=== PATIENT | female | born 1940 | race Hispanic/Latino ===

== ENCOUNTER → 2018-07-02 | Day surgery (SDC) | payer MEDICARE ==
--- NOTE | 2018-06-26 16:53 | Diagnostic Imaging Report ---
EXAMINATION: PA and lateral views of the chest. COMPARISON: None CLINICAL HISTORY: Preoperative exam for finger surgery DISCUSSION: Right internal jugular chest port catheter tip projects over the high right atrium. The lungs are well-inflated and without focal consolidation, pleural effusion, or pneumothorax. Lobular densities projecting over the heart on the lateral radiograph likely represent axillary or chest wall soft tissue, as no correlate is identified on the frontal radiograph. Left axillary surgical clips. No acute osseous abnormalities. IMPRESSION: No acute cardiopulmonary abnormalities. Signed by: Dr. Wenceslao Wisdom M.D. on 06/26/2018 4:49 PM
[2018-06-26 17:07] LABS: BASOPHILS # (AUTO) 0.1 (0.0-0.1); BASOPHILS % 1.9 % (0.0-1.0); EOSINOPHILS # (AUTO) 0.1 (0.0-0.4); EOSINOPHILS % 2.4 % (0.0-6.0); HEMOGLOBIN 12.4 g/dL (12.0-16.0); LYMPHOCYTES # (AUTO) 1.1 (1.0-3.2); LYMPHOCYTES % 26.9 % (18.0-39.1); MEAN CORPUSCULAR HEMOGLOBIN 30.7 pg (28-32); MEAN CORPUSCULAR HGB CONC 33.5 g/dL (31-35); MEAN CORPUSCULAR VOLUME 91.6 fL (81-99); MONOCYTES # (AUTO) 0.5 (0.2-0.8); MONOCYTES % 11.1 % (4.4-11.3); NEUTROPHILS # (AUTO) 2.4 (2.1-6.9); NEUTROPHILS % 57.5 % (38.7-80.0); PLATELET COUNT 201 x10e3/uL (140-360); RED BLOOD COUNT 4.04 x10e6/uL (3.6-5.1); RED CELL DISTRIBUTION WIDTH 12.9 % (11.7-14.4)
[2018-06-26 17:20] LABS: ANION GAP 12.1 mmol/L (8-16); BLOOD UREA NITROGEN 11 mg/dL (7-26); BUN/CREATININE RATIO 15 (6-25); CALCIUM 9.9 mg/dL (8.4-10.2); CARBON DIOXIDE 26 mmol/L (22-29); CHLORIDE 103 mmol/L (98-107); CREATININE, SERUM 0.75 mg/dL (0.57-1.11); EST GLOMERULAR FILTRATION RATE > 60 ML/MIN (60-); GLUCOSE 114 mg/dL (74-118); POTASSIUM 4.1 mmol/L (3.5-5.1); SODIUM 137 mmol/L (136-145)
[~2018-07-02] MED LIST: ARIMIDEX1 MG PO; BUPIVACAINE HCL 0.5% INJ 30 ML VIAL INJ ONE; CEFAZOLIN SOD 1 GM/NS 50ML 50 ML IV ONE; DEXAMETHASONE SOD PHOS INJ 4 MG/ML VIAL ONE; FENTANYL CITRATE/PF 100MCG/2 ML INJ ONE; HYDROMORPHONE 2MG/ML 2 MG/ML ML ONE; LIDOCAINE HCL 2% LOCAL INJ 5 ML SDV VIAL INJ ONE; MELOXICAM PO; MUPIROCIN 2% OINT 22 GM TUBE ONE; ONDANSETRON HCL INJ 2MG/ML 2ML 2 MG/ML VIAL ONE; PEPCID PO; PROPOFOL IV EMULSION 10 MG/ML 20 ML VIAL ONE; RED CLOVER PO; SEVOFLURANE INHAL SOLN 250 ML PEN BTL ONE
--- OUTSIDE RECORDS SUMMARY | 2018-07-02 05:38 | XMS REPORT | Clinical Summary ---
Author Author [facility] Address Unknown Phone Unavailable Care Team Providers Care Printing Plate Clerk Name Role Phone Asked, No Pcp PCP Unavailable Allergies Comments Active Allergy Reactions Severity Noted Date Hydrocodone Itching 11/08/2017 Medications No known medications Active Problems Problem Noted Date Carpal tunnel syndrome on left 11/08/2017 Encounters Care Team Description Date Type Specialty Katelin Finley MD Carpal tunnel syndrome on left (Primary Dx); Trigger middle finger of left hand; Trigger ring finger of left hand 11/08/2017 Office Visit Orthopedic Surgery Osman Liu MA Hand pain, left (Primary Dx) 11/07/2017 Orders Only Orthopedic Surgery after 07/01/2017 Social History Date Tobacco Use Types Packs/Day Years Used Never Smoker Smokeless Tobacco: Never Used Alcohol Use Drinks/Week oz/Week Comments No Sex Assigned at Date Recorded Not on file Industry Job Start Date Occupation Not on file Not on file Not on file Travel End Travel History Travel Start No recent travel history available. Last Filed Vital Signs Not on file Plan of Treatment Health Maintenance Due Date Last Done Comments BREAST CANCER SCREENING 1992 COLON CANCER SCREENING 1992 SHINGLES VACCINES (#1) 1992 65+ PNEUMOCOCCAL VACCINE 10/10/2007 (1 of 2 - PCV13) PNEUMOCOCCAL 10/10/2007 POLYSACCHARIDE VACCINE AGE 65 AND OVER INFLUENZA VACCINE 10/31/2017 Procedures Comments Procedure Name Priority Date/Time Associated Diagnosis XR HAND 3+ VW LEFT Routine 11/08/2017 Hand pain, left 9:06 AM CDT [place] INJECT TENDON Routine 11/08/2017 Trigger ring finger of SHEATH/LIGAMENT 8:40 AM CDT left hand [place] INJECT TENDON Routine 11/08/2017 Trigger middle finger of SHEATH/LIGAMENT 8:40 AM CDT left hand after 07/01/2017 Results * XR Hand 3+ Vw Left (11/08/2017 9:06 AM CDT) Narrative Performed At [facility] Xrays: The x-rays were ordered and personally reviewed by me. 3 views of the left hand Reason for exam: Left hand pain Impression: Left hand with evidence of a healed distal radius fracture Performing Organization Address City/State/Zipcode Phone Number [facility] [address] [place] [address] * Injection tendon or ligament (11/08/2017 8:40 AM CDT) Narrative Performed At Katelin Finley MD 11/08/2017 12:45 PM Injection tendon or ligament Date/Time: 11/08/2017 12:43 PM Performed by: KATELIN FINLEY Authorized by: KATELIN FINLEY Consent: Consent obtained:Verbal Consent given by:Patient Procedure details: Type of injection:Tendon sheath Location:Hand Hand location:Left ring flexor Left side: Left ring finger medications administered: 6 mg betamethasone acetate & sodium phosphate 6 mg/mL; 0.5 mL lidocaine 10 mg/mL (1 %) Post-procedure details: Patient tolerance of procedure:Tolerated well, no immediate complications * Injection tendon or ligament (11/08/2017 8:40 AM CDT) Narrative Performed At Katelin Finley MD 11/08/2017 12:45 PM Injection tendon or ligament Date/Time: 11/08/2017 12:43 PM Performed by: KATELIN FINLEY Authorized by: KATELIN FINLEY Consent: Consent obtained:Verbal Consent given by:Patient Procedure details: Type of injection:Tendon sheath Location:Hand Hand location:Left long flexor Left side: Left thumb medications administered: 6 mg betamethasone acetate & sodium phosphate 6 mg/mL; 0.5 mL lidocaine 10 mg/mL (1 %) Post-procedure details: Patient tolerance of procedure:Tolerated well, no immediate complications after 07/01/2017 Insurance Payer Benefit Subscriber ID Type Phone Address Plan / Group HUMANA MEDICARE HUMANA xxxxxxxxx PPO MEDICARE PPO/PFFS/E [facility] Advance Directives Patient has advance care planning documents on file. For more information, jonathan e contact: Scot [address] [place] [address]
--- OUTSIDE RECORDS SUMMARY | 2018-07-02 05:38 | XMS REPORT ---
Author [facility] Address Unknown Phone Unavailable Care Team Providers Care Aspnet Developer Name Role Phone ESTEFANIA DAVILA Unavailable Unavailable Problems This patient has no known problems. Allergies, Adverse Reactions, Alerts This patient has no known allergies or adverse reactions. Medications This patient has no known medications. Results Test Description Test Time Test Comments Text Results Atomic Results Result Comments CHEST 2 VIEWS 2018-06-26 16:45:00 [place] [address] Patient Name: PATEL HARRINGTON MR #: [id number] : 1940 Age/Sex: 77/F Req #: [id number] Adm Physician: Ordered by: ESTEFANIA DAVILA MD Report #: [id number] Location: OR Room/Bed: Procedure: [id number] DX/CHEST 2 VIEWS Exam Date: 06/26/18 Exam Time: 1550 REPORT STATUS: Signed EXAMINATION: PA and lateral views of the chest. C OMPARISON: None CLINICAL HISTORY: Preoperative exam for finger surgery DISCUSSION: Right internal jugular chest port catheter tip projects over the high right atrium. The lungs are well-inflated and without focal consolidation, pleural effusion, or pneumothorax. Lobular densities projecting over the heart on the lateral radiograph likely represent axillary or chest wall soft tissue, as no correlate is identified on the frontal radiograph. Left axillary surgical clips. No acute osseous abnormalities. IMPRESSION: No acute cardiopulmonary abnormalities. Signed by: Dr. Lisseth Figueredo M.D. on 06/26/2018 4:49 PM Dictated By: LISSETH FIGUEREDO MD 48 Transcribed By: ANNI on 06/26/181648 COPY TO: ESTEFANIA DAVILA MD
[2018-07-02 08:49] VITALS: BP 142/72
--- NOTE | 2018-07-02 16:27 | Operative Report ---
DATE OF PROCEDURE: 07/02/2018 SURGEON: Thang Sandoval MD PREOPERATIVE DIAGNOSIS: Stenosing tenosynovitis of left long finger. POSTOPERATIVE DIAGNOSIS: Stenosing tenosynovitis of left long finger. OPERATION PERFORMED: Tenovaginotomy of left long finger. ANESTHESIA: General. HISTORY: The patient is a 77-year-old left hand-dominant female, who presents with stenosing tenosynovitis of the left long finger that is recalcitrant to conservative treatment. The risks, benefits, and alternatives of treatment were discussed with the patient and they are prepared to undergo the procedure as outlined. DESCRIPTION OF PROCEDURE: The patient was brought to the operating theater. After the induction of adequate general/regional anesthesia, the patient was prepped and draped in a supine position. A time out was performed by the entire operating room team. An oblique incision was marked out over the A1 elena of the left long finger. The upper extremity was exsanguinated, and a tourniquet was inflated to a pressure of 250 mmHg. The incision was made through the skin and subcutaneous tissues. All venous tributaries were controlled with bipolar cautery. The incision was deepened through the palmar tissues. The neurovascular bundles on the radial and ulnar sides of the flexor tendon sheath were identified and retracted away from the flexor tendon sheath and preserved. The A1 elena of the affected finger was identified and incised longitudinally, taking care to protect and preserve the flexor tendons within the sheath. After the complete length of the elena had been transected, the tendons were placed in a range of motion. There was noted to be good motion without any locking. The wound was then copiously irrigated with bacteriostatic saline and closed with 5-0 nylon in an interrupted horizontal mattress fashion. A Marcaine field block was performed at the operative site. The tourniquet was deflated. All the fingers pinked up nicely. A sterile bulky conforming bandage was applied to the hand, and the patient was returned to the recovery room in satisfactory condition and was discharged with a postoperative instruction sheet as well as a followup appointment. Thang Sandoval MD ER/MODL /[id number]
== END | disposition home or self-care (01) ==
LOC: OR 05:36
PROVIDERS: ATTEND Plastic Surgery
DX: M65.332 Trigger finger, left middle finger (principal); C50.912 Malignant neoplasm of unspecified site of left female breast; R42 Dizziness and giddiness; F41.9 Anxiety disorder, unspecified; Z88.6 Allergy status to analgesic agent; Z79.890 Hormone replacement therapy; Z01.810 Encounter for preprocedural cardiovascular examination; Z01.812 Encounter for preprocedural laboratory examination; Z01.818 Encounter for other preprocedural examination; Z90.12 Acquired absence of left breast and nipple
CPT/HCPCS: 26055; 36415; 71046; 80048; 85025; 93005; J0690; J1100; J1170; J2001; J2405; J2704

== ENCOUNTER 2018-10-19 16:29 | Emergency (ER) | payer MEDICARE, OTHER ==
[~2018-10-19] VITALS: Ht 152.4 cm; Wt 95.3 kg
[~2018-10-19 16:29] MED LIST changes: -BUPIVACAINE HCL 0.5% INJ 30 ML VIAL INJ ONE; -CEFAZOLIN SOD 1 GM/NS 50ML 50 ML IV ONE; -DEXAMETHASONE SOD PHOS INJ 4 MG/ML VIAL ONE; -FENTANYL CITRATE/PF 100MCG/2 ML INJ ONE; -HYDROMORPHONE 2MG/ML 2 MG/ML ML ONE; -LIDOCAINE HCL 2% LOCAL INJ 5 ML SDV VIAL INJ ONE; -MUPIROCIN 2% OINT 22 GM TUBE ONE; -ONDANSETRON HCL INJ 2MG/ML 2ML 2 MG/ML VIAL ONE; -PROPOFOL IV EMULSION 10 MG/ML 20 ML VIAL ONE; -SEVOFLURANE INHAL SOLN 250 ML PEN BTL ONE
--- OUTSIDE RECORDS SUMMARY | 2018-10-19 16:33 | XMS REPORT | Clinical Summary ---
Author Author [facility] Address Unknown Phone Unavailable Care Team Providers Care Enterostomal Therapy Nurse Name Role Phone Asked, No Pcp PCP [...] Dx) 11/07/2017 Orders Only Orthopedic Surgery after 10/18/2017 Social History Date Tobacco Use Types Packs/Day [...] Health Maintenance Due Date Last Done Comments COLONOSCOPY SCREENING 1992 SHINGLES VACCINES (#1) 1992 65+ PNEUMOCOCCAL VACCINE 10/10/2007 (1 of 2 - PCV13) INFLUENZA VACCINE 10/31/2018 Procedures Comments Procedure Name Priority Date/Time Associated Diagnosis XR HAND 3+ VW LEFT Routine 11/08/2017 Hand pain, left 9:06 AM CDT [place] INJECT TENDON Routine 11/08/2017 Trigger ring finger of SHEATH/LIGAMENT 8:40 AM CDT left hand [place] INJECT TENDON Routine 11/08/2017 Trigger middle finger of SHEATH/LIGAMENT 8:40 AM CDT left hand after 10/18/2017 Results * XR Hand 3+ Vw Left (11/08/2017 9:06 AM CDT) Specimen Narrative Performed At [facility] Xrays: The x-rays were ordered and personally reviewed by me. 3 views of the left hand Reason for exam: Left hand pain Impression: Left hand with evidence of a healed distal radius fracture Performing Organization Address City/State/Zipcode Phone Number [facility] [address] [place] [address] * Injection tendon or ligament (11/08/2017 8:40 [...] of procedure:Tolerated well, no immediate complications after 10/18/2017 Insurance Type Payer Benefit Subscriber ID Effective Phone Address Plan / Dates Group PPO HUMANA MEDICARE HUMANA xxxxxxxxx 2017-P MEDICARE resent PPO/PFFS/E [facility] Advance Directives Patient has advance care planning documents on file. For more information, jonathan atkinson contact: Scot Carvajal [address] [place] [address]
[2018-10-19] MEDS: ACETAMINOPHEN 325 MG TAB PO STA (16:55)
[2018-10-19] MEDS ORDERED: ACETAMINOPHEN 325 MG TAB ONE (16:56)
--- NOTE | 2018-10-19 17:32 | Diagnostic Imaging Report ---
EXAMINATION: CXR 2 VIEW - HOPD INDICATION: Bodyaches. Nausea. Fever x3 days. COMPARISON: Chest x-ray 06/26/2018 FINDINGS: TUBES and LINES: Tunneled right dialysis catheter with tip in the low right atrium. LUNGS: Lungs are well inflated. Lungs are clear. There is mild prominence of the central pulmonary vasculature, consistent with pulmonary venous congestion. PLEURA: No pleural effusion or pneumothorax. HEART AND MEDIASTINUM: Cardiac size is mildly enlarged. BONES AND SOFT TISSUES: There are degenerative changes in the thoracic spine. Soft tissues are unremarkable. Left axillary surgical clips. UPPER ABDOMEN: No free air under the diaphragm. IMPRESSION: Mild cardiomegaly. Mild nonspecific central pulmonary venous congestion. Signed by: Dr. Lino Del Rio M.D. on 10/19/2018 5:28 PM
[2018-10-19 19:02] VITALS: BP 133/63
== END 2018-10-19 18:50 | disposition home or self-care (01) ==
LOC: FSED 16:29
DX: N30.91 Cystitis, unspecified with hematuria (principal); Z85.3 Personal history of malignant neoplasm of breast; Z88.5 Allergy status to narcotic agent
CPT/HCPCS: 71046; 80048; 80076; 81003; 82553; 83518; 83880; 84484; 85025; 87040; 87086; 87400; 93005; 99284

== ENCOUNTER → 2020-08-12 | Day surgery (SDC) | payer MEDICARE ==
[2020-08-09 15:16] LABS: BASOPHILS # (AUTO) 0.1 (0.0-0.1); BASOPHILS % 2.3 % (0.0-1.0); EOSINOPHILS # (AUTO) 0.2 (0.0-0.4); EOSINOPHILS % 3.8 % (0.0-6.0); HEMATOCRIT 34.5 % (34.2-44.1); HEMOGLOBIN 11.6 g/dL (12.0-16.0); LYMPHOCYTES # (AUTO) 1.5 (1.0-3.2); LYMPHOCYTES % 33.5 % (18.0-39.1); MEAN CORPUSCULAR HEMOGLOBIN 30.5 pg (28-32); MEAN CORPUSCULAR HGB CONC 33.6 g/dL (31-35); MEAN CORPUSCULAR VOLUME 90.8 fL (81-99); MONOCYTES # (AUTO) 0.5 (0.2-0.8); MONOCYTES % 10.9 % (4.4-11.3); NEUTROPHILS # (AUTO) 2.2 (2.1-6.9); NEUTROPHILS % 49.5 % (38.7-80.0); PLATELET COUNT 186 x10e3/uL (140-360); RED CELL DISTRIBUTION WIDTH 13.2 % (11.7-14.4)
[~2020-08-12] MED LIST changes: +FENTANYL CITRATE/PF 100MCG/2 ML INJ ONE; +IOPAMIDOL 200 MG/ML 20 ML VIAL IT ONE; +LIDOCAINE HCL 1% 30ML-PF VIAL ONE; +LIDOCAINE HCL 2% LOCAL INJ 5 ML SDV VIAL INJ ONE; +MIDAZOLAM HCL 2 MG/2 ML VIAL ONE; +POVIDONE IODINE 0.05% 0.05 % ML PO ONE; +PROPOFOL IV EMULSION 10 MG/ML 20 ML VIAL ONE; +TRIAMCINOLONE ACET 40 MG/ML VIAL ONE; +VITAMIN B122500 MCG PO
[2020-08-12 07:35] VITALS: BP 173/84
== END | disposition home or self-care (01) ==
LOC: OR 05:53
PROVIDERS: ATTEND Physical Medicine & Rehabilitation Pain Medicine
DX: M47.896 Other spondylosis, lumbar region (principal); G89.29 Other chronic pain; M25.562 Pain in left knee; M25.561 Pain in right knee; G62.9 Polyneuropathy, unspecified; Z01.810 Encounter for preprocedural cardiovascular examination; Z01.812 Encounter for preprocedural laboratory examination; Z20.822 Contact with and (suspected) exposure to COVID-19; Z85.3 Personal history of malignant neoplasm of breast; Z96.653 Presence of artificial knee joint, bilateral
CPT/HCPCS: 36415; 64493; 64494; 64495; 85025; 93005; J2001 ×2; J2250; J2704; J3010; J3301; Q9967; U0002; 77003

== ENCOUNTER 2021-08-13 09:02 | Emergency (ER) | payer MEDICARE ==
[~2021-08-13] VITALS: Ht 160 cm; Wt 99.0 kg
[~2021-08-13 09:02] MED LIST changes: -FENTANYL CITRATE/PF 100MCG/2 ML INJ ONE; -IOPAMIDOL 200 MG/ML 20 ML VIAL IT ONE; -LIDOCAINE HCL 1% 30ML-PF VIAL ONE; -LIDOCAINE HCL 2% LOCAL INJ 5 ML SDV VIAL INJ ONE; -MIDAZOLAM HCL 2 MG/2 ML VIAL ONE; -POVIDONE IODINE 0.05% 0.05 % ML PO ONE; -PROPOFOL IV EMULSION 10 MG/ML 20 ML VIAL ONE; -TRIAMCINOLONE ACET 40 MG/ML VIAL ONE
[2021-08-13] MEDS ORDERED: CYCLOBENZAPRINE5 MG PO (09:40)
[2021-08-13] MEDS ORDERED: IBUPROFEN600 MG PO (09:40)
[2021-08-13] MEDS ORDERED: CYCLOBENZAPRINE HCL 10 MG TAB PO ONE (09:45)
[2021-08-13] MEDS ORDERED: KETOROLAC TROMETHAMINE 60 MG/2 ML VIAL IM ONE (09:45)
[2021-08-13] MEDS ORDERED: KETOROLAC TROMETHAMINE 30 MG/ML VIAL ONE (09:50)
== END 2021-08-13 09:48 | disposition home or self-care (01) ==
LOC: FSED 09:16
DX: M54.2 Cervicalgia (principal); Z85.3 Personal history of malignant neoplasm of breast; Z96.653 Presence of artificial knee joint, bilateral
CPT/HCPCS: 96372; 99283; J1885

== ENCOUNTER 2021-08-13 18:17 | Emergency (ER) | payer MEDICARE ==
[~2021-08-13] VITALS: Ht 157.5 cm; Wt 74.8 kg
[~2021-08-13 18:17] MED LIST changes: +CYCLOBENZAPRINE5 MG PO; +IBUPROFEN600 MG PO
[2021-08-13 19:20] LABS: BASOPHILS # (AUTO) 0.1 (0.0-0.1); BASOPHILS % 2.8 % (0.0-1.0); EOSINOPHILS # (AUTO) 0.2 (0.0-0.4); EOSINOPHILS % 5.1 % (0.0-6.0); HEMATOCRIT 35.7 % (34.2-44.1); HEMOGLOBIN 12.1 g/dL (12.0-16.0); LYMPHOCYTES # (AUTO) 1.6 (1.0-3.2); LYMPHOCYTES % 40.9 % (18.0-39.1); MEAN CORPUSCULAR HEMOGLOBIN 31.4 pg (28-32); MEAN CORPUSCULAR HGB CONC 33.9 g/dL (31-35); MEAN CORPUSCULAR VOLUME 92.7 fL (81-99); MONOCYTES # (AUTO) 0.5 (0.2-0.8); MONOCYTES % 11.6 % (4.4-11.3); NEUTROPHILS # (AUTO) 1.6 (2.1-6.9); NEUTROPHILS % 39.3 % (38.7-80.0); PLATELET COUNT 229 x10e3/uL (140-360); RED BLOOD COUNT 3.85 x10e6/uL (3.6-5.1); RED CELL DISTRIBUTION WIDTH 12.4 % (11.7-14.4)
[2021-08-13 19:45] LABS: ALBUMIN 3.5 g/dL (3.5-5.0); CALCIUM 9.5 mg/dL (8.4-10.2); CREATININE, SERUM 0.95 mg/dL (0.57-1.11)
[2021-08-13 20:36] VITALS: BP 148/68
== END 2021-08-13 20:30 | disposition home or self-care (01) ==
LOC: ER 18:27
DX: R68.84 Jaw pain (principal); M54.2 Cervicalgia; Z85.3 Personal history of malignant neoplasm of breast; Z96.653 Presence of artificial knee joint, bilateral
CPT/HCPCS: 36415; 71045; 80053; 83880; 84484; 85025; 93005; 99283

== ENCOUNTER → 2021-11-04 | Day surgery (SDC) | payer MEDICARE ==
[2021-11-02 15:15] LABS: BASOPHILS # (AUTO) 0.1 (0.0-0.1); BASOPHILS % 2.2 % (0.0-1.0); EOSINOPHILS # (AUTO) 0.2 (0.0-0.4); EOSINOPHILS % 3.3 % (0.0-6.0); HEMATOCRIT 35.1 % (34.2-44.1); HEMOGLOBIN 11.9 g/dL (12.0-16.0); LYMPHOCYTES # (AUTO) 1.4 (1.0-3.2); LYMPHOCYTES % 30.7 % (18.0-39.1); MEAN CORPUSCULAR HEMOGLOBIN 31.2 pg (28-32); MEAN CORPUSCULAR HGB CONC 33.9 g/dL (31-35); MEAN CORPUSCULAR VOLUME 92.1 fL (81-99); MONOCYTES # (AUTO) 0.5 (0.2-0.8); MONOCYTES % 10.8 % (4.4-11.3); NEUTROPHILS # (AUTO) 2.4 (2.1-6.9); NEUTROPHILS % 52.8 % (38.7-80.0); PLATELET COUNT 209 x10e3/uL (140-360); RED BLOOD COUNT 3.81 x10e6/uL (3.6-5.1); RED CELL DISTRIBUTION WIDTH 13.2 % (11.7-14.4)
[2021-11-02 15:37] LABS: ANION GAP 13.3 mmol/L (8-16); CREATININE, SERUM 0.87 mg/dL (0.57-1.11); POTASSIUM 4.3 mmol/L (3.5-5.1)
[2021-11-02 15:38] LABS: ALBUMIN 3.8 g/dL (3.5-5.0); ALBUMIN/GLOBULIN RATIO 1.1 (0.8-2.0)
[~2021-11-04] MED LIST changes: +BUPIVACAINE 0.25% 30ML SDV ONE; +FENTANYL CITRATE/PF 100MCG/2 ML INJ ONE; +LIDOCAINE HCL 1% LOCAL INJ 20 ML VIAL ONE; +LIDOCAINE HCL 2% LOCAL INJ 5 ML SDV VIAL INJ ONE; +MIDAZOLAM HCL 2 MG/2 ML VIAL ONE; +POVIDONE IODINE 0.05% 0.05 % ML PO ONE; +PROPOFOL IV EMULSION 10 MG/ML 20 ML VIAL ONE
[2021-11-04 12:05] VITALS: BP 145/79
== END | disposition home or self-care (01) ==
LOC: OR 09:38
PROVIDERS: ATTEND Surgery
DX: T82.598A Other mechanical complication of other cardiac and vascular devices and implants, initial encounter (principal); C50.919 Malignant neoplasm of unspecified site of unspecified female breast; K21.9 Gastro-esophageal reflux disease without esophagitis; Y83.8 Other surgical procedures as the cause of abnormal reaction of the patient, or of later complication, without mention of misadventure at the time of the procedure; Z01.810 Encounter for preprocedural cardiovascular examination; Z01.812 Encounter for preprocedural laboratory examination; Z20.822 Contact with and (suspected) exposure to COVID-19; Z92.21 Personal history of antineoplastic chemotherapy
CPT/HCPCS: 0223U; 36415; 36590; 80053; 85025; 93005; J2001; J2250; J2704; J3010

== ENCOUNTER 2022-01-14 15:31 | Emergency (ER) | payer MEDICARE ==
[~2022-01-14] VITALS: Ht 157.5 cm; Wt 74.8 kg
[~2022-01-14 15:31] MED LIST changes: -BUPIVACAINE 0.25% 30ML SDV ONE; -FENTANYL CITRATE/PF 100MCG/2 ML INJ ONE; -LIDOCAINE HCL 1% LOCAL INJ 20 ML VIAL ONE; -LIDOCAINE HCL 2% LOCAL INJ 5 ML SDV VIAL INJ ONE; -MIDAZOLAM HCL 2 MG/2 ML VIAL ONE; -POVIDONE IODINE 0.05% 0.05 % ML PO ONE; -PROPOFOL IV EMULSION 10 MG/ML 20 ML VIAL ONE
[2022-01-14] MEDS ORDERED: ONDANSETRON HCL INJ 2MG/ML 2ML 2 MG/ML VIAL IV STA (16:29)
[2022-01-14] MEDS ORDERED: TRAMADOL HCL 50 MG TAB PO ONE (16:30)
[2022-01-14] MEDS ORDERED: ACETAMINOPHEN 325 MG TAB PO ONE (16:30)
[2022-01-14] MEDS ORDERED: SODIUM CHLORIDE FLUSH 10 ML SYR IV PRN (16:30)
[2022-01-14 16:34] LABS: BASOPHILS # (AUTO) 0.1 (0.0-0.1); EOSINOPHILS # (AUTO) 0.2 (0.0-0.4); HEMATOCRIT 36.1 % (34.2-44.1); HEMOGLOBIN 11.9 g/dL (12.0-16.0); LYMPHOCYTES # (AUTO) 1.2 (1.0-3.2); LYMPHOCYTES % 13.2 % (18.0-39.1); MEAN CORPUSCULAR HEMOGLOBIN 31.2 pg (28-32); MEAN CORPUSCULAR VOLUME 94.5 fL (81-99); MONOCYTES # (AUTO) 0.7 (0.2-0.8); MONOCYTES % 7.6 % (4.4-11.3); NEUTROPHILS # (AUTO) 6.7 (2.1-6.9); NEUTROPHILS % 75.6 % (38.7-80.0); PLATELET COUNT 195 x10e3/uL (140-360); RED BLOOD COUNT 3.82 x10e6/uL (3.6-5.1); RED CELL DISTRIBUTION WIDTH 12.8 % (11.7-14.4)
[2022-01-14] MEDS ORDERED: ONDANSETRON HCL INJ 2MG/ML 2ML 2 MG/ML VIAL IV NR (16:45)
[2022-01-14 16:52] LABS: ALBUMIN 3.9 g/dL (3.5-5.0); ALBUMIN/GLOBULIN RATIO 1.3 (0.8-2.0); ANION GAP 19.1 mmol/L (8-16); CALCIUM 9.5 mg/dL (8.4-10.2); CREATININE, SERUM 0.9 mg/dL (0.57-1.11); POTASSIUM 4.1 mmol/L (3.5-5.1)
[2022-01-14 17:38] LABS: CLARITY,URINE CLEAR (CLEAR); COLOR,URINE YELLOW (YELLOW); KETONES,URINE NEGATIVE (NEGATIVE); LEUKOCYTE ESTERASE ,URINE NEGATIVE (NEGATIVE); NITRITE,URINE NEGATIVE (NEGATIVE); PROTEIN,URINE DIPSTICK TRACE (NEGATIVE); URINE UROBILINOGEN 1 mg/dL (0.2 - 1)
[2022-01-14 17:44] LABS: BACTERIA,URINE RARE /HPF; WBC,URINE (MAN) 0-5 /HPF (0-5)
[2022-01-14] MEDS ORDERED: KETOROLAC TROMETHAMINE 30 MG/ML VIAL IV STA (19:01)
[2022-01-14] MEDS ORDERED: CYCLOBENZAPRINE HCL 10 MG TAB PO ONE (19:15)
[2022-01-14] MEDS ORDERED: ULTRAM 50MG50 MG PO (20:34)
[2022-01-14 20:45] VITALS: BP 148/68
== END 2022-01-14 20:47 | disposition home or self-care (01) ==
LOC: ER 15:37
DX: M54.50 Low back pain, unspecified (principal); R11.2 Nausea with vomiting, unspecified; R73.9 Hyperglycemia, unspecified; G89.29 Other chronic pain; Z85.3 Personal history of malignant neoplasm of breast; Z96.653 Presence of artificial knee joint, bilateral
CPT/HCPCS: 36415; 74176; 80053; 81001; 85025; 99284; J1885; J2405

== ENCOUNTER 2022-01-22 09:08 | Inpatient (IN) | payer MEDICARE ==
[~2022-01-22] VITALS: Ht 157.5 cm; Wt 98.0 kg
[~2022-01-22 09:08] MED LIST changes: +ULTRAM 50MG50 MG PO
[2022-01-22] MEDS ORDERED: ONDANSETRON HCL INJ 2MG/ML 2ML 2 MG/ML VIAL IV STA (09:31)
[2022-01-22] MEDS ORDERED: SODIUM CHLORIDE 0.9% 500ML 500 ML IV ONE (09:45)
[2022-01-22 09:50] LABS: BASOPHILS # (AUTO) 0.1 (0.0-0.1); BASOPHILS % 1.4 % (0.0-1.0); EOSINOPHILS # (AUTO) 0.2 (0.0-0.4); EOSINOPHILS % 2.6 % (0.0-6.0); HEMATOCRIT 37.4 % (34.2-44.1); HEMOGLOBIN 13.2 g/dL (12.0-16.0); LYMPHOCYTES # (AUTO) 1.3 (1.0-3.2); LYMPHOCYTES % 21.8 % (18.0-39.1); MEAN CORPUSCULAR HEMOGLOBIN 30.8 pg (28-32); MEAN CORPUSCULAR HGB CONC 35.3 g/dL (31-35); MEAN CORPUSCULAR VOLUME 87.4 fL (81-99); MONOCYTES # (AUTO) 0.7 (0.2-0.8); MONOCYTES % 11.6 % (4.4-11.3); NEUTROPHILS # (AUTO) 3.7 (2.1-6.9); NEUTROPHILS % 62.1 % (38.7-80.0); PLATELET COUNT 358 x10e3/uL (140-360); RED BLOOD COUNT 4.28 x10e6/uL (3.6-5.1); RED CELL DISTRIBUTION WIDTH 12.4 % (11.7-14.4)
[2022-01-22 10:07] LABS: INR 1.07; PARTIAL THROMBOPLASTIN TIME 28.6 seconds (23.8-35.5); PROTHROMBIN TIME 14.9 seconds (11.9-14.5)
[2022-01-22 10:08] LABS: CLARITY,URINE SL CLOUDY (CLEAR); COLOR,URINE STRAW (YELLOW); KETONES,URINE NEGATIVE (NEGATIVE); LEUKOCYTE ESTERASE ,URINE NEGATIVE (NEGATIVE); NITRITE,URINE NEGATIVE (NEGATIVE); PROTEIN,URINE DIPSTICK NEGATIVE (NEGATIVE); URINE UROBILINOGEN 2 mg/dL (0.2 - 1)
[2022-01-22 10:10] LABS: ALANINE AMINOTRANSFERASE 41 IU/L (0-55); ALBUMIN 3.6 g/dL (3.5-5.0); ALBUMIN/GLOBULIN RATIO 0.9 (0.8-2.0); ALKALINE PHOSPHATASE 129 IU/L (40-150); ANION GAP 20.9 mmol/L (8-16); BLOOD UREA NITROGEN 10 mg/dL (7-26); BUN/CREATININE RATIO 13 (6-25); CALCIUM 9.9 mg/dL (8.4-10.2); CARBON DIOXIDE 23 mmol/L (22-29); CHLORIDE 99 mmol/L (98-107); CREATINE KINASE 35 IU/L (29-168); CREATININE, SERUM 0.77 mg/dL (0.57-1.11); GLUCOSE 203 mg/dL (74-118); LIPASE 48 U/L (8-78); MAGNESIUM 1.9 MG/DL (1.3-2.1); POTASSIUM 3.9 mmol/L (3.5-5.1); SODIUM 139 mmol/L (136-145)
[2022-01-22 10:24] LABS: BACTERIA,URINE FEW /HPF; EPITHELIAL CELLS,URINE FEW /LPF
[2022-01-22 10:25] LABS: RENAL EPITHELIAL CELLS,URINE RARE
[2022-01-22 10:30] LABS: THYROID STIMULATING HORMONE 1.474 uIU/mL (0.350-4.940)
[2022-01-22] MEDS ORDERED: IOPAMIDOL 370 MG/ML 100 ML INFUS..BTL INJ ONE (10:47)
[2022-01-22] MEDS ORDERED: ONDANSETRON HCL INJ 2MG/ML 2ML 2 MG/ML VIAL IV PRN (13:15)
[2022-01-22] MEDS: SODIUM CHLORIDE 0.9% 1000ML 1,000 ML IV SCH (13:15)
[2022-01-22] MEDS ORDERED: ACETAMINOPHEN 325 MG TAB PO ONE (14:30)
[2022-01-22] MEDS ORDERED: MINERAL OIL 132 ML BTL PR PRN (14:30)
[2022-01-22 15:30] VITALS: BP 150/76
[2022-01-22] MEDS ORDERED: LYRICA75 MG PO (16:09)
[2022-01-22] MEDS ORDERED: NEURONTIN300 MG PO (16:09)
[2022-01-22 16:42] VITALS: BP 150/76
[2022-01-22] MEDS: LACTULOSE SYRUP 20 GM/30 ML UDC PO SCH (17:22)
[2022-01-22 20:00] VITALS: BP 156/72
[2022-01-22 20:30] VITALS: BP 150/76
[2022-01-23] VITALS (10 sets, daily range): BP systolic 119–181; BP diastolic 62–95
[2022-01-23] MEDS: LACTULOSE SYRUP 20 GM/30 ML UDC PO SCH ×4 (00:33→18:11)
[2022-01-23] MEDS: SODIUM CHLORIDE 0.9% 1000ML 1,000 ML IV SCH ×3 (00:37→18:10)
[2022-01-23] MEDS ORDERED: HYDRALAZINE HCL 20 MG/ML VIAL IV PRN (02:30)
[2022-01-23 05:01] LABS: BASOPHILS # (AUTO) 0.1 (0.0-0.1); BASOPHILS % 1.3 % (0.0-1.0); EOSINOPHILS # (AUTO) 0.2 (0.0-0.4); EOSINOPHILS % 2.5 % (0.0-6.0); HEMOGLOBIN 14.1 g/dL (12.0-16.0); LYMPHOCYTES # (AUTO) 1.2 (1.0-3.2); LYMPHOCYTES % 16.3 % (18.0-39.1); MEAN CORPUSCULAR HEMOGLOBIN 30.7 pg (28-32); MEAN CORPUSCULAR HGB CONC 32.8 g/dL (31-35); MONOCYTES # (AUTO) 0.7 (0.2-0.8); MONOCYTES % 9.2 % (4.4-11.3); NEUTROPHILS # (AUTO) 5.2 (2.1-6.9); NEUTROPHILS % 69.4 % (38.7-80.0); PLATELET COUNT 297 x10e3/uL (140-360); RED CELL DISTRIBUTION WIDTH 12.3 % (11.7-14.4)
[2022-01-23 05:13] LABS: MEAN CORPUSCULAR VOLUME 93.5 fL (81-99)
[2022-01-23] MEDS ORDERED: ACETAMINOPHEN 325 MG TAB PO PRN (05:45)
[2022-01-23 05:49] LABS: ALBUMIN 3.5 g/dL (3.5-5.0); ANION GAP 20.8 mmol/L (8-16); CALCIUM 9.7 mg/dL (8.4-10.2); CREATININE, SERUM 0.79 mg/dL (0.57-1.11); POTASSIUM 3.8 mmol/L (3.5-5.1)
[2022-01-23] MEDS: LIDOCAINE 4% PATCH TP SCH (09:23)
[2022-01-23] MEDS ORDERED: TRAMADOL HCL 50 MG TAB PO PRN (16:30)
[2022-01-23] MEDS ORDERED: IBUPROFEN 600 MG TAB PO PRN (16:30)
[2022-01-23] MEDS: HYDROMORPHONE 1MG/1ML INJ IV PRN (17:11)
[2022-01-23] MEDS: GABAPENTIN 300 MG CAP PO SCH ×2 (18:11→21:25)
[2022-01-23] MEDS ORDERED: NON-FORMULARY MEDICATION (Cyclobenzaprine Hcl (Flexeril) 10 MG) PO SCH (21:00)
[2022-01-23] MEDS: CYCLOBENZAPRINE HCL 10 MG TAB PO SCH (21:24)
[2022-01-23] MEDS: PREGABALIN 75 MG CAP PO SCH (21:25)
[2022-01-24] VITALS (8 sets, daily range): BP systolic 128–166; BP diastolic 68–86
[2022-01-24] MEDS: HYDROMORPHONE 1MG/1ML INJ IV PRN ×2 (00:32→13:54)
[2022-01-24] MEDS: LACTULOSE SYRUP 20 GM/30 ML UDC PO SCH ×4 (00:33→18:00)
[2022-01-24] MEDS: SODIUM CHLORIDE 0.9% 1000ML 1,000 ML IV SCH ×3 (05:03→15:15)
[2022-01-24] MEDS: PREGABALIN 75 MG CAP PO SCH ×2 (09:10→20:54)
[2022-01-24] MEDS: GABAPENTIN 300 MG CAP PO SCH ×2 (09:12→20:55)
[2022-01-24] MEDS: LIDOCAINE 4% PATCH TP SCH (09:21)
[2022-01-24] MEDS: CYCLOBENZAPRINE HCL 10 MG TAB PO SCH (20:54)
[2022-01-25] MEDS: LACTULOSE SYRUP 20 GM/30 ML UDC PO SCH ×4 (00:51→20:45)
[2022-01-25] MEDS: SODIUM CHLORIDE 0.9% 1000ML 1,000 ML IV SCH ×2 (00:57→12:59)
[2022-01-25 05:50] VITALS: BP 124/76
[2022-01-25] MEDS ORDERED: CEFTRIAXONE 1 GM VIAL ONE (07:36)
[2022-01-25 08:35] VITALS: BP 143/74
[2022-01-25] MEDS: GABAPENTIN 300 MG CAP PO SCH ×2 (09:35→20:45)
[2022-01-25] MEDS: LIDOCAINE 4% PATCH TP SCH (09:35)
[2022-01-25] MEDS: PREGABALIN 75 MG CAP PO SCH ×2 (09:35→20:45)
[2022-01-25 12:27] VITALS: BP 144/80
[2022-01-25] MEDS: HYDROMORPHONE 1MG/1ML INJ IV PRN (16:00)
[2022-01-25 16:17] VITALS: BP 145/75
[2022-01-25] MEDS ORDERED: HYDROCODONE/APAP 7.5MG-325MG 1 EA TAB PO PRN (16:30)
[2022-01-25 20:00] VITALS: BP 127/69
[2022-01-25 20:18] VITALS: BP 127/69
[2022-01-25] MEDS: CYCLOBENZAPRINE HCL 10 MG TAB PO SCH (20:45)
[2022-01-26 00:44] VITALS: BP 108/75
[2022-01-26 00:45] VITALS: BP 96/75
[2022-01-26 04:56] VITALS: BP 122/75
[2022-01-26 05:58] LABS: BASOPHILS # (AUTO) 0.1 (0.0-0.1); BASOPHILS % 1.2 % (0.0-1.0); EOSINOPHILS # (AUTO) 0.2 (0.0-0.4); EOSINOPHILS % 3.4 % (0.0-6.0); HEMATOCRIT 35.4 % (34.2-44.1); HEMOGLOBIN 11.7 g/dL (12.0-16.0); LYMPHOCYTES # (AUTO) 1.4 (1.0-3.2); MEAN CORPUSCULAR HEMOGLOBIN 30.9 pg (28-32); MEAN CORPUSCULAR HGB CONC 33.1 g/dL (31-35); MEAN CORPUSCULAR VOLUME 93.4 fL (81-99); MONOCYTES # (AUTO) 0.8 (0.2-0.8); MONOCYTES % 11.7 % (4.4-11.3); NEUTROPHILS # (AUTO) 4.4 (2.1-6.9); NEUTROPHILS % 63.4 % (38.7-80.0); PLATELET COUNT 227 x10e3/uL (140-360); RED BLOOD COUNT 3.79 x10e6/uL (3.6-5.1); RED CELL DISTRIBUTION WIDTH 12.2 % (11.7-14.4)
[2022-01-26 06:18] LABS: ANION GAP 13.6 mmol/L (8-16); CALCIUM 9.4 mg/dL (8.4-10.2); CREATININE, SERUM 0.71 mg/dL (0.57-1.11); POTASSIUM 3.6 mmol/L (3.5-5.1)
[2022-01-26 07:19] VITALS: BP 136/83
[2022-01-26 07:55] VITALS: BP 136/83
[2022-01-26] MEDS ORDERED: LIDOCAINE 4% PATCH TP SCH (09:00)
[2022-01-26] MEDS: LACTULOSE SYRUP 20 GM/30 ML UDC PO SCH (09:07)
[2022-01-26] MEDS: GABAPENTIN 300 MG CAP PO SCH (09:07)
[2022-01-26] MEDS: PREGABALIN 75 MG CAP PO SCH (09:07)
[2022-01-26] MEDS: HYDROMORPHONE 1MG/1ML INJ IV PRN (11:03)
== END 2022-01-26 12:38 | disposition home or self-care (01) | DRG 390 ==
LOC: ER 09:15 → INTOOBSV 13:18 → ERHOLD 13:18 → MED/SURG 15:21 → OBSVTOIN 01-24 15:49
DX: K56.7 Ileus, unspecified (principal); G89.29 Other chronic pain; E11.9 Type 2 diabetes mellitus without complications; E11.8 Type 2 diabetes mellitus with unspecified complications; Z79.4 Long term (current) use of insulin; M48.00 Spinal stenosis, site unspecified; E66.01 Morbid (severe) obesity due to excess calories; Z68.39 Body mass index [BMI] 39.0-39.9, adult; D64.9 Anemia, unspecified; Z85.3 Personal history of malignant neoplasm of breast; Z90.10 Acquired absence of unspecified breast and nipple
CPT/HCPCS: 0223U; 36415; 74022; 74177; 80048; 80053; 81001; 82550; 82553; 83690; 83735; 84443; 84484; 85025; 85610; 85730; 87086; 93005; 99284; G0378; J0360; J0696; J1170; J2405; J7030; J7040; Q9967

== ENCOUNTER → 2022-03-01 | Outpatient (RCR) | payer MEDICARE ==
[~2022-03-01] MED LIST changes: +LYRICA75 MG PO; +NEURONTIN300 MG PO
== END ==
LOC: PT 02-10 07:38
DX: M48.061 Spinal stenosis, lumbar region without neurogenic claudication (principal); M54.50 Low back pain, unspecified; M62.81 Muscle weakness (generalized); R26.2 Difficulty in walking, not elsewhere classified

== ENCOUNTER 2022-08-04 07:54 | Inpatient (IN) | payer MEDICARE ==
[~2022-08-04] VITALS: Ht 160 cm; Wt 98.4 kg
[~2022-08-04 07:54] MED LIST changes: +HYDROCODON-ACE1 EA12 PO; +ZOLOFT50 MG PO
[2022-08-04] MEDS ORDERED: SODIUM CHLORIDE 0.9% 500ML 500 ML IV ONE (08:15)
[2022-08-04 08:36] LABS: BASOPHILS % 1.3 % (0.0-1.0); EOSINOPHILS # (AUTO) 0.1 (0.0-0.4); EOSINOPHILS % 2.9 % (0.0-6.0); LYMPHOCYTES # (AUTO) 0.3 (1.0-3.2); LYMPHOCYTES % 10.1 % (18.0-39.1); MEAN CORPUSCULAR HEMOGLOBIN 30.6 pg (28-32); MEAN CORPUSCULAR HGB CONC 33.3 g/dL (31-35); MEAN CORPUSCULAR VOLUME 91.9 fL (81-99); MONOCYTES # (AUTO) 0.4 (0.2-0.8); MONOCYTES % 11.7 % (4.4-11.3); NEUTROPHILS # (AUTO) 2.3 (2.1-6.9); NEUTROPHILS % 73.4 % (38.7-80.0); PLATELET COUNT 138 x10e3/uL (140-360); RED BLOOD COUNT 3.59 x10e6/uL (3.6-5.1); RED CELL DISTRIBUTION WIDTH 14.6 % (11.7-14.4)
[2022-08-04 08:47] LABS: PARTIAL THROMBOPLASTIN TIME 22.6 seconds (23.8-35.5)
[2022-08-04 08:52] LABS: INR 0.9; PROTHROMBIN TIME 12.6 seconds (11.9-14.5)
[2022-08-04] MEDS ORDERED: SODIUM CHLORIDE 0.9% 1000ML 1,000 ML IV STA ×2 (08:54→12:05)
[2022-08-04 08:56] LABS: CALCIUM 8.4 mg/dL (8.4-10.2); CREATININE, SERUM 0.57 mg/dL (0.57-1.11); MAGNESIUM 1.5 MG/DL (1.3-2.1)
[2022-08-04 09:05] LABS: B-TYPE NATRIURETIC PEPTIDE2 14.7 pg/mL (0-100)
[2022-08-04] MEDS ORDERED: LABETALOL HCL 5 MG/ML 20ML VIAL IV STA (09:37)
[2022-08-04] MEDS ORDERED: POTASSIUM CHLORIDE 20 MEQ TAB CR PO STA (09:46)
[2022-08-04] MEDS ORDERED: IOPAMIDOL 370 MG/ML 100 ML INFUS..BTL INJ ONE (10:09)
[2022-08-04] MEDS ORDERED: ONDANSETRON HCL INJ 2MG/ML 2ML 2 MG/ML VIAL IV PRN (10:45)
[2022-08-04 10:59] LABS: COLOR,URINE YELLOW (YELLOW)
[2022-08-04 11:00] LABS: BACTERIA,URINE FEW /HPF; CLARITY,URINE CLEAR (CLEAR); EPITHELIAL CELLS,URINE FEW /LPF; KETONES,URINE NEGATIVE (NEGATIVE); LEUKOCYTE ESTERASE ,URINE SMALL (NEGATIVE); NITRITE,URINE NEGATIVE (NEGATIVE); PROTEIN,URINE DIPSTICK NEGATIVE (NEGATIVE); RBC,URINE 0-5 /HPF (0-5); URINE UROBILINOGEN 0.2 mg/dL (0.2 - 1); WBC,URINE (MAN) 21-50 /HPF (0-5)
[2022-08-04] MEDS: FAMOTIDINE 20 MG/2 ML VIAL IV SCH ×2 (11:41→22:45)
[2022-08-04] MEDS: ENOXAPARIN SODIUM INJ 100 MG/ML SYR SC SCH ×2 (11:41→21:00)
[2022-08-04 11:59] VITALS: PULSE 75; O2SAT 96
[2022-08-04 12:43] LABS: CREATINE KINASE MB 2.1 ng/mL (0-5.0)
[2022-08-04 13:55] VITALS: BP 131/73; PULSE 111; RESP 22; TEMP 98.4; O2SAT 98
[2022-08-04 14:00] VITALS: BP 131/73; PULSE 111; RESP 22; TEMP 98.4; O2SAT 98
[2022-08-04] MEDS ORDERED: ONDANSETRON ODT4 MG PO (14:14)
[2022-08-04] MEDS ORDERED: SENOKOT-S TABL1 EACH PO (14:14)
[2022-08-04] MEDS ORDERED: METFORMIN HCL500 MG PO (14:14)
[2022-08-04] MEDS ORDERED: CYMBALTA30 MG PO (14:14)
[2022-08-04] MEDS ORDERED: ALLOPURINOL100 MG PO (14:14)
[2022-08-04] MEDS ORDERED: MELATONIN 5 MG TABLET PO PRN (16:15)
[2022-08-04] MEDS ORDERED: DEXTROSE 50% SYRINGE 50 ML IV PRN (16:15)
[2022-08-04] MEDS ORDERED: HYDRALAZINE HCL 20 MG/ML VIAL IV PRN (16:15)
[2022-08-04] MEDS: INSULIN REGULAR, HUMAN 100 UNIT/1 ML SQ SCH ×2 (16:30→21:00)
[2022-08-04 19:10] VITALS: PULSE 84; RESP 18; O2SAT 97
[2022-08-04 21:29] VITALS: BP 131/72; PULSE 68; RESP 18; TEMP 97.3; O2SAT 98
[2022-08-04 22:25] VITALS: BP 131/72; PULSE 68; RESP 18; TEMP 97.3; O2SAT 98
[2022-08-05] VITALS (11 sets, daily range): BP systolic 95–130; BP diastolic 51–89; PULSE 75–112; RESP 17–21; TEMP 97.5–98.6; O2SAT 96–100
[2022-08-05 08:30] LABS: BASOPHILS # (AUTO) 0.1 (0.0-0.1); BASOPHILS % 2.1 % (0.0-1.0); EOSINOPHILS # (AUTO) 0.1 (0.0-0.4); EOSINOPHILS % 4.1 % (0.0-6.0); HEMATOCRIT 29.7 % (34.2-44.1); LYMPHOCYTES # (AUTO) 0.3 (1.0-3.2); LYMPHOCYTES % 11.1 % (18.0-39.1); MEAN CORPUSCULAR HEMOGLOBIN 31.7 pg (28-32); MEAN CORPUSCULAR HGB CONC 33.7 g/dL (31-35); MEAN CORPUSCULAR VOLUME 94.3 fL (81-99); MONOCYTES # (AUTO) 0.4 (0.2-0.8); MONOCYTES % 16.9 % (4.4-11.3); NEUTROPHILS # (AUTO) 1.6 (2.1-6.9); NEUTROPHILS % 65.4 % (38.7-80.0); PLATELET COUNT 136 x10e3/uL (140-360); RED BLOOD COUNT 3.15 x10e6/uL (3.6-5.1); RED CELL DISTRIBUTION WIDTH 15.3 % (11.7-14.4)
[2022-08-05] MEDS: ENOXAPARIN SODIUM INJ 100 MG/ML SYR SC SCH (08:32)
[2022-08-05] MEDS: FAMOTIDINE 20 MG/2 ML VIAL IV SCH ×2 (08:36→20:56)
[2022-08-05] MEDS: INSULIN REGULAR, HUMAN 100 UNIT/1 ML SQ SCH ×4 (08:40→20:54)
[2022-08-05 08:48] LABS: ALBUMIN 2.8 g/dL (3.5-5.0); ANION GAP 13.5 mmol/L (8-16); CALCIUM 7.4 mg/dL (8.4-10.2); CREATININE, SERUM 0.56 mg/dL (0.57-1.11); POTASSIUM 3.5 mmol/L (3.5-5.1)
[2022-08-05 11:53] LABS: CREATINE KINASE MB 1.5 ng/mL (0-5.0)
[2022-08-05 12:26] LABS: EOSINOPHILS % (MANUAL) 1 % (0-7); LYMPHOCYTES % (MANUAL) 16 % (19-48); MONOCYTES % (MANUAL) 10 % (3.4-9.0); NEUTROPHILS % (MANUAL) 71 % (40-74); NUCLEATED RED BLOOD CELLS 1; PLATELET ESTIMATE SLIGHTLY DECREASED; PLATELET MORPHOLOGY COMMENT NORMAL; RBC MORPHOLOGY COMMENT NORMAL
[2022-08-05 14:31] LABS: CREATINE KINASE MB 1.3 ng/mL (0-5.0)
[2022-08-05] MEDS: CIPROFLOXACIN 200 MG/D5W 100ML 100 ML IV SCH (14:49)
[2022-08-05] MEDS: APIXABAN 5 MG TABLET PO SCH (16:21)
[2022-08-05] MEDS: ACETAMINOPHEN 325 MG TAB PO PRN (16:21)
[2022-08-06] VITALS (9 sets, daily range): BP systolic 127–143; BP diastolic 65–81; PULSE 82–112; RESP 18–20; TEMP 97.3–98.7; O2SAT 97–100
[2022-08-06] MEDS: ACETAMINOPHEN 325 MG TAB PO PRN (01:29)
[2022-08-06] MEDS: CIPROFLOXACIN 200 MG/D5W 100ML 100 ML IV SCH ×2 (01:29→13:16)
[2022-08-06 06:16] LABS: BASOPHILS # (AUTO) 0.1 (0.0-0.1); BASOPHILS % 2.2 % (0.0-1.0); EOSINOPHILS # (AUTO) 0.1 (0.0-0.4); EOSINOPHILS % 5.8 % (0.0-6.0); HEMATOCRIT 28.1 % (34.2-44.1); HEMOGLOBIN 9.3 g/dL (12.0-16.0); LYMPHOCYTES # (AUTO) 0.3 (1.0-3.2); LYMPHOCYTES % 14.3 % (18.0-39.1); MEAN CORPUSCULAR HEMOGLOBIN 30.7 pg (28-32); MEAN CORPUSCULAR HGB CONC 33.1 g/dL (31-35); MEAN CORPUSCULAR VOLUME 92.7 fL (81-99); MONOCYTES # (AUTO) 0.3 (0.2-0.8); MONOCYTES % 14.7 % (4.4-11.3); NEUTROPHILS # (AUTO) 1.4 (2.1-6.9); NEUTROPHILS % 62.1 % (38.7-80.0); PLATELET COUNT 162 x10e3/uL (140-360); RED BLOOD COUNT 3.03 x10e6/uL (3.6-5.1); RED CELL DISTRIBUTION WIDTH 14.8 % (11.7-14.4)
[2022-08-06 06:40] LABS: ALANINE AMINOTRANSFERASE 17 IU/L (0-55); ALBUMIN 2.6 g/dL (3.5-5.0); ALBUMIN/GLOBULIN RATIO 0.9 (0.8-2.0); ALKALINE PHOSPHATASE 114 IU/L (40-150); ANION GAP 11.8 mmol/L (8-16); BLOOD UREA NITROGEN < 5 mg/dL (7-26); CALCIUM 7.4 mg/dL (8.4-10.2); CARBON DIOXIDE 23 mmol/L (22-29); CHLORIDE 108 mmol/L (98-107); CREATININE, SERUM 0.51 mg/dL (0.57-1.11); GLUCOSE 189 mg/dL (74-118); SODIUM 140 mmol/L (136-145)
[2022-08-06 06:53] LABS: BUN/CREATININE RATIO 10 (6-25)
[2022-08-06 06:58] LABS: POTASSIUM 2.8 mmol/L (3.5-5.1)
[2022-08-06] MEDS ORDERED: POTASSIUM CHLORIDE 20 MEQ TAB CR PO ONE ×2 (08:15→11:00)
[2022-08-06] MEDS: APIXABAN 5 MG TABLET PO SCH ×2 (08:54→16:20)
[2022-08-06] MEDS: INSULIN REGULAR, HUMAN 100 UNIT/1 ML SQ SCH ×4 (09:01→22:29)
[2022-08-06] MEDS: FAMOTIDINE 20 MG/2 ML VIAL IV SCH ×2 (10:01→22:15)
[2022-08-06] MEDS ORDERED: BISACODYL 5 MG TAB EC PO PRN (11:15)
[2022-08-06] MEDS ORDERED: FUROSEMIDE INJ 10 MG/ML 4 ML VIAL IV ONE (14:00)
[2022-08-06] MEDS ORDERED: LEVALBUTEROL HCL SOLN NEBU 0.63 MG/3 ML NEB ONE (14:31)
[2022-08-06] MEDS: LEVALBUTEROL HCL SOLN NEBU 0.63 MG/3 ML NEB INH SCH (19:40)
[2022-08-07] VITALS (12 sets, daily range): BP systolic 102–150; BP diastolic 56–76; PULSE 89–113; RESP 17–20; TEMP 97.3–98.9; O2SAT 99–100
[2022-08-07] MEDS: LEVALBUTEROL HCL SOLN NEBU 0.63 MG/3 ML NEB INH SCH ×4 (00:50→19:50)
[2022-08-07] MEDS: ACETAMINOPHEN 325 MG TAB PO PRN (01:26)
[2022-08-07] MEDS: CIPROFLOXACIN 200 MG/D5W 100ML 100 ML IV SCH ×2 (01:26→14:26)
[2022-08-07 05:42] LABS: BASOPHILS # (AUTO) 0.1 (0.0-0.1); BASOPHILS % 2.1 % (0.0-1.0); EOSINOPHILS # (AUTO) 0.2 (0.0-0.4); EOSINOPHILS % 6.2 % (0.0-6.0); HEMOGLOBIN 9.6 g/dL (12.0-16.0); LYMPHOCYTES # (AUTO) 0.4 (1.0-3.2); LYMPHOCYTES % 14.9 % (18.0-39.1); MEAN CORPUSCULAR HEMOGLOBIN 30.7 pg (28-32); MEAN CORPUSCULAR HGB CONC 33.1 g/dL (31-35); MEAN CORPUSCULAR VOLUME 92.7 fL (81-99); MONOCYTES # (AUTO) 0.4 (0.2-0.8); NEUTROPHILS # (AUTO) 1.4 (2.1-6.9); NEUTROPHILS % 59.4 % (38.7-80.0); PLATELET COUNT 185 x10e3/uL (140-360); RED BLOOD COUNT 3.13 x10e6/uL (3.6-5.1); RED CELL DISTRIBUTION WIDTH 14.9 % (11.7-14.4)
[2022-08-07 06:11] LABS: ALANINE AMINOTRANSFERASE 15 IU/L (0-55); ALBUMIN 2.6 g/dL (3.5-5.0); ALBUMIN/GLOBULIN RATIO 0.9 (0.8-2.0); ALKALINE PHOSPHATASE 113 IU/L (40-150); ANION GAP 12.1 mmol/L (8-16); BLOOD UREA NITROGEN < 5 mg/dL (7-26); CALCIUM 7.5 mg/dL (8.4-10.2); CARBON DIOXIDE 24 mmol/L (22-29); CHLORIDE 105 mmol/L (98-107); CREATININE, SERUM 0.55 mg/dL (0.57-1.11); GLUCOSE 208 mg/dL (74-118); POTASSIUM 3.1 mmol/L (3.5-5.1); SODIUM 138 mmol/L (136-145)
[2022-08-07 06:17] LABS: BUN/CREATININE RATIO 9 (6-25)
[2022-08-07] MEDS ORDERED: ACETAMINOPHEN 1000 MG/100 ML 100 ML IV ONE (06:37)
[2022-08-07] MEDS ORDERED: POTASSIUM CHLORIDE 20 MEQ TAB CR PO ONE (08:00)
[2022-08-07] MEDS: APIXABAN 5 MG TABLET PO SCH ×2 (08:18→16:47)
[2022-08-07] MEDS: INSULIN REGULAR, HUMAN 100 UNIT/1 ML SQ SCH ×4 (08:19→21:15)
[2022-08-07] MEDS ORDERED: SODIUM CHLORIDE 0.9% 250ML 250 ML ONE (10:00)
[2022-08-07] MEDS: FAMOTIDINE 20 MG/2 ML VIAL IV SCH ×2 (11:17→23:40)
[2022-08-08 00:40] VITALS: BP 122/64; PULSE 118; RESP 18; TEMP 97.8; O2SAT 99
[2022-08-08 00:55] VITALS: PULSE 108; RESP 20; O2SAT 100
[2022-08-08] MEDS: LEVALBUTEROL HCL SOLN NEBU 0.63 MG/3 ML NEB INH SCH ×2 (00:55→06:30)
[2022-08-08] MEDS: CIPROFLOXACIN 200 MG/D5W 100ML 100 ML IV SCH (01:25)
[2022-08-08 04:00] VITALS: BP 120/69; PULSE 109; RESP 18; TEMP 97.5; O2SAT 100
[2022-08-08 05:00] LABS: BASOPHILS # (AUTO) 0.1 (0.0-0.1); BASOPHILS % 2.5 % (0.0-1.0); EOSINOPHILS # (AUTO) 0.2 (0.0-0.4); EOSINOPHILS % 8.4 % (0.0-6.0); HEMATOCRIT 27.9 % (34.2-44.1); HEMOGLOBIN 9.3 g/dL (12.0-16.0); LYMPHOCYTES # (AUTO) 0.4 (1.0-3.2); LYMPHOCYTES % 16.9 % (18.0-39.1); MEAN CORPUSCULAR HEMOGLOBIN 31.1 pg (28-32); MEAN CORPUSCULAR HGB CONC 33.3 g/dL (31-35); MEAN CORPUSCULAR VOLUME 93.3 fL (81-99); MONOCYTES # (AUTO) 0.4 (0.2-0.8); MONOCYTES % 16.5 % (4.4-11.3); NEUTROPHILS # (AUTO) 1.3 (2.1-6.9); NEUTROPHILS % 54.4 % (38.7-80.0); PLATELET COUNT 184 x10e3/uL (140-360); RED BLOOD COUNT 2.99 x10e6/uL (3.6-5.1); RED CELL DISTRIBUTION WIDTH 15.6 % (11.7-14.4)
[2022-08-08 05:23] LABS: ALBUMIN 2.6 g/dL (3.5-5.0); ALBUMIN/GLOBULIN RATIO 0.9 (0.8-2.0); ANION GAP 12.7 mmol/L (8-16); CALCIUM 7.8 mg/dL (8.4-10.2); CREATININE, SERUM 0.55 mg/dL (0.57-1.11); POTASSIUM 3.7 mmol/L (3.5-5.1)
[2022-08-08 06:59] VITALS: PULSE 104; RESP 20; O2SAT 96
[2022-08-08 08:00] VITALS: BP 120/69; PULSE 104; RESP 20; TEMP 97.5; O2SAT 96
[2022-08-08] MEDS: APIXABAN 5 MG TABLET PO SCH (08:39)
[2022-08-08] MEDS: INSULIN REGULAR, HUMAN 100 UNIT/1 ML SQ SCH ×2 (08:40→11:30)
[2022-08-08] MEDS ORDERED: ELIQUIS5 MG PO (08:44)
[2022-08-08 08:50] VITALS: BP 119/85; PULSE 103; RESP 20; TEMP 98.3; O2SAT 100
[2022-08-08] MEDS: ACETAMINOPHEN 325 MG TAB PO PRN (09:59)
[2022-08-08] MEDS: FAMOTIDINE 20 MG/2 ML VIAL IV SCH (10:45)
== END 2022-08-08 13:11 | disposition hospice, home (50) | DRG 175 ==
LOC: ER 08:06 → ERHOLD 10:48 → MED/SURG2 13:32
PROVIDERS: ADMIT Family Medicine Adult Medicine; ATTEND Family Medicine Adult Medicine
DX: I26.99 Other pulmonary embolism without acute cor pulmonale (principal); A41.9 Sepsis, unspecified organism; J96.01 Acute respiratory failure with hypoxia; J18.9 Pneumonia, unspecified organism; R65.20 Severe sepsis without septic shock; N39.0 Urinary tract infection, site not specified; C79.51 Secondary malignant neoplasm of bone; C78.02 Secondary malignant neoplasm of left lung; C78.01 Secondary malignant neoplasm of right lung; E87.20 Acidosis, unspecified; J90 Pleural effusion, not elsewhere classified; E66.9 Obesity, unspecified; Z68.38 Body mass index [BMI] 38.0-38.9, adult; M54.9 Dorsalgia, unspecified; K57.90 Diverticulosis of intestine, part unspecified, without perforation or abscess without bleeding; M79.7 Fibromyalgia; E11.42 Type 2 diabetes mellitus with diabetic polyneuropathy; E87.6 Hypokalemia; B96.89 Other specified bacterial agents as the cause of diseases classified elsewhere; Z90.49 Acquired absence of other specified parts of digestive tract; Z96.659 Presence of unspecified artificial knee joint; Z85.3 Personal history of malignant neoplasm of breast; Z66 Do not resuscitate; Z79.84 Long term (current) use of oral hypoglycemic drugs; Z20.822 Contact with and (suspected) exposure to COVID-19
CPT/HCPCS: 36415; 51700; 70450; 71045; 71260; 80053; 81001; 82550; 82553; 82948; 83605; 83735; 83880; 84484; 85025; 85379; 85610; 85730; 87040; 87086; 87186; 93005; 93970; 94640; 94799; 99252; 99284; J0696; J1650; J1940; J7030; J7040; J7050; Q9967